=== PATIENT | male | born 1940 | race Caucasian/White ===

== ENCOUNTER 2018-06-10 11:51 | Emergency (ER) | payer MEDICARE, OTHER, SELFPAY ==
[2018-06-10 11:54] VITALS: BP 115/70; PULSE 61; RESP 18; TEMP 36.7; O2SAT 97
--- NOTE | 2018-06-10 12:50 | ED.ABDPAIN ---
HPI - Abdominal Pain General Chief Complaint: Abdominal Pain Stated Complaint: GALL BLADDER INFEC Time Seen by Provider: 06/10/18 12:48 Source: patient Mode of arrival: ambulatory Limitations: no limitations History of Present Illness HPI narrative: Patient is a 78-year-old male sent over from [place] for evaluation of possible gallbladder pathology. Patient states that earlier this year he was diagnosed with a ?gallbladder infection ?he states that he was treated with antibiotics. He states he was told that if he was younger he would have had his gallbladder removed but at the time they decided not to do it. He states that he has not had any symptoms since that episode. He states that over the past couple days has had right upper quadrant and right flank pain. Patient denies any fevers. Did have a ?poor ?diet yesterday. States that pain is not worse with deep breathing but did get worse when he was hitting bumps in the car on his way here. Related Data Home Medications Medication Instructions Recorded Confirmed amlodipine 5 mg PO DAILY 06/10/18 06/10/18 aspirin 81 mg PO DAILY 06/10/18 06/10/18 atorvastatin 40 mg PO DAILY 06/10/18 06/10/18 carvedilol 3 tab PO BID 06/10/18 06/10/18 furosemide 40 - 80 mg PO DAILY 06/10/18 06/10/18 warfarin 5 mg PO QPM 06/10/18 06/10/18 Allergies Allergy/AdvReac Type Severity Reaction Status Date / Time piperacillin [From Zosyn] Allergy Severe renal Verified 06/10/18 14:38 failure propofol Allergy Severe Unresponsiv Verified 06/10/18 14:38 e tazobactam [From Zosyn] Allergy Severe renal Verified 06/10/18 14:38 failure vancomycin Allergy Severe renal Verified 06/10/18 14:38 failure Review of Systems Constitutional Denies fatigue and Denies fever(s) ENT Ears, Nose, Mouth, and Throat: Denies vertigo and Denies dizziness Cardiovascular Denies chest pain and Denies dyspnea Respiratory Denies cough, Denies dyspnea and Denies wheezing Gastrointestinal Gastrointestinal: Reports abdominal pain, Denies constipation, Denies diarrhea, Denies nausea and Denies vomiting Genitourinary Denies dysuria and Reports flank pain (Right) Musculoskeletal Denies myalgias and Denies arthralgias Integumentary/Breasts Denies lesions and Denies rash Neurologic Denies confusion, Denies vertigo and Denies dizziness Psychiatric Denies confusion Endocrine Denies fatigue Hematologic/Lymphatic Denies easy bleeding and Denies easy bruising Allergic/Immunologic Denies wheezing [facility] Medical History Hypertension (Acute) Surgical History No pertinent past surgical history (Acute) Social History Smoking Status: Former smoker Exam Initial Vital Signs Initial Vital Signs: Vital Signs Temperature 98.1 F 06/10/18 11:54 Pulse Rate 61 06/10/18 11:54 Respiratory Rate 18 06/10/18 11:54 Blood Pressure 115/70 06/10/18 11:54 Pulse Oximetry 97 06/10/18 11:54 Const General: cooperative, healthy appearing, comfortable, well developed, well groomed and No acute distress Orientation: alert, awake and oriented x3 HENMT Head: normal to inspection and normocephalic Resp Effort & Inspection: normal respiratory effort Auscultation: clear to auscultation bilaterally Cardio Rate: regular rate Rhythm: regular rhythm Pulses: radial pulses present GI Inspection: non-distended Palpation: soft, No firm and No tender (No right upper quadrant tenderness negative Arredondo sign) General: CVA tenderness (Points to his right CVA where the pain was previously.) Skin Lesions: no lesions Rashes: no rashes Neuro General: alert, awake and oriented x3 Extrem General: normal to inspection and capillary refill normal Psych Appearance: grossly normal and well kempt Course Orders Ordered: ED Orders 06/10/18 12:49 US abdomen complete Stat 06/10/18 13:15 Complete Blood Count AUTO DIFF Stat Comprehensive Metabolic Panel Stat Lipase Stat Prothrombin Time INR Stat Vital Signs - 8 hr 06/10/18 11:54 06/10/18 13:08 06/10/18 14:57 Temperature 98.1 F Pulse Rate 61 61 68 Respiratory Rate 18 15 15 Blood Pressure 115/70 Blood Pressure [Left Arm] 114/70 Blood Pressure [Right Arm] 118/79 Pulse Oximetry 97 95 100 MDM - Abdominal Pain Lab Data Attestation: I reviewed the patient's lab results. Result diagrams: 06/10/18 13:15 06/10/18 13:15 Lab Results 06/10/18 06/10/18 06/10/18 Range/Units 13:15 13:15 13:15 WBC 6.7 (4.5-11.0) X10^3/uL RBC 3.92 L (4.5-5.9) X10^6/uL Hgb 12.9 L (13.5-17.5) g/dL Hct 37.4 L (41-53) % MCV 95.4 (80-100) fL MCH 33.0 (26-34) PG MCHC 34.6 (30-36) % RDW 13.5 (11.6-14.8) % Plt Count 200 (150-400) X10^3/uL Neut % (Auto) 58.8 (50-75) % Lymph % (Auto) 24.7 L (25-40) % [place] % (Auto) 11.2 (3-14) % Eos % (Auto) 4.5 H (2-4) % Baso % (Auto) 0.8 (0-2) % Neut # (Auto) 3900 (1713-7768) /uL PT 36.6 H (10.1-12.7) SECONDS INR 3.3 H (0.9-1.3) Sodium 141 (137-145) mmol/L Potassium 3.7 (3.4-5.1) mmol/L Chloride 106 (98-107) mmol/L Carbon Dioxide 25 (22-32) mmol/L BUN 16 (9-20) mg/dL Creatinine 0.90 (0.66-1.25) mg/dL Estimated GFR > 60.0 (>60) mL/min BUN/Creatinine Ratio 17.8 (6-22) Glucose 105 (80-110) mg/dL Calcium 9.0 (8.4-10.2) mg/dL Total Bilirubin 1.9 H (0.2-1.3) mg/dL AST 21 (17-59) IU/L ALT 24 (21-72) IU/L Alkaline Phosphatase 79 (38-126) U/L Total Protein 6.6 (6.3-8.2) g/dL Albumin 4.0 (3.5-5.0) g/dL Globulin 2.6 (1.7-4.1) g/dL Albumin/Globulin Ratio 1.5 (1.0-2.8) Lipase 40 (23-300) U/L Point of care testing: Urine Dip Bedside Urine Glucose Negative Bedside Urine Bilirubin - Negative Bedside Urine Ketone - Negative Urine Specific [place] 1.015 Bedside Urine Occult Blood - Negative Bedside Urine pH 6.0 Bedside Urine Protein - Negative Bedside Urine Nitrite - Negative Bedside Urine Leukocytes - Negative Esterase Imaging Data US - abdomen: Radiologist's impression: PROCEDURE: US ABDOMEN COMPLETE INDICATIONS: Right upper quadrant pain concern for GB pathology TECHNIQUE: Real-time scanning was performed of the abdominal and retroperitoneal organs, with image documentation. COMPARISON: None. FINDINGS: Liver: Liver is normal in size and homogeneous in echotexture. Gallbladder: Cholelithiasis is identified with the largest measuring up to approximately 9 mm. Sludge is seen within the gallbladder. There is no gallbladder wall thickening, pericholecystic fluid, or cholelithiasis. Biliary ducts: Intrahepatic bile ducts are non-dilated. Extrahepatic bile duct caliber measures 5 mm. Normal is 6-7 mm or less in diameter, or 10 mm or less post-cholecystectomy. Pancreas: Visualized portions of the pancreas are sonographically normal. Spleen: The spleen is mildly enlarged and measures 13.9 cm in length. Kidneys: Kidneys are normal in size. Cortical thinning is noted bilaterally with mild increased echogenicity of the kidneys. Right kidney measures 13.8 cm long; left kidney measures 13.3 cm long. No hydronephrosis or nephrolithiasis. No solid masses. Bilateral renal cysts are identified with the largest cyst noted to be on the left, measuring up to 4.4 cm in diameter. Aorta: Visualized aorta is normal in caliber at less than 3 cm. Iliacs: Proximal common iliac arteries are normal in caliber at less than 2.5 cm. IVC: Intrahepatic inferior vena cava is patent. Miscellaneous: No free abdominal fluid. IMPRESSION: 1. Cholelithiasis and gallbladder sludge without convincing sonographic evidence of acute cholecystitis. 2. Cortical thinning of the kidneys with mild increased echogenicity is suspicious for chronic medical renal disease. Please correlate clinically. There is no hydronephrosis. 3. Mild splenectomy. Dictated by: Wilver Solis M.D. on 06/10/2018 at 13:22 Approved by: Wilver Solis M.D. on 06/10/2018 at 13:25 MDM Narrative Medical decision making narrative: Patient does have right flank pain which is unusual for gallbladder pathology however he states that this is where his pain was when he was diagnosed with a ?gallbladder infection ?in the past. At the time of my exam he was asymptomatic. LFTs unremarkable. Right upper quadrant ultrasound does show gallbladder sludge however no other signs of cholecystitis. Urine was unremarkable. Skin was unremarkable. Low suspicion for zoster. Discussed all of this with the patient and his daughter who was at bedside. He was given return precautions. No indication for antibiotic currently. We did discuss changing his diet to avoid the pain. Will hold on surgical consultation for now. Both the patient and his daughter expressed understanding and agreement. Discharge Plan Departure Patient Disposition: Home, Self-Care Clinical Impression: Cholelithiasis Instructions: Gallstones (Alternative Therapy), DI for Gallstones Activity Restrictions/Additional Instructions: You do have sludge in your gallbladder which does require follow-up with her primary care doctor when you get home to discuss the indications for a surgical consult. Recommend that you avoid fatty or greasy foods to avoid any continued pain. Return to the emergency department for any worsening pain, rashes, vomiting, fevers, or any other concerning symptoms. Continue all of your medications as directed. Prescriptions: No Action furosemide 40 mg tablet 40 - 80 mg PO DAILY RF: 0 atorvastatin 40 mg tablet 40 mg PO DAILY RF: 0 carvedilol 12.5 mg tablet 3 tab PO BID RF: 0 amlodipine 5 mg tablet 5 mg PO DAILY RF: 0 warfarin 5 mg tablet 5 mg PO QPM RF: 0 aspirin 81 mg Tablet,Delayed Release (Dr/Ec) 81 mg PO DAILY RF: 0
[2018-06-10 13:08] VITALS: BP 114/70; PULSE 61; RESP 15; O2SAT 95
[2018-06-10 13:32] LABS: Add Manual Diff / Slide Review NO; Basophils Percent Auto 0.8 % (0-2); Eosinophils Percent Auto 4.5 % (2-4); Hematocrit 37.4 % (41-53); Hemoglobin 12.9 g/dL (13.5-17.5); Lymphocytes Percent Auto 24.7 % (25-40); Mean Corpuscular HGB Conc 34.6 % (30-36); Mean Corpuscular Volume 95.4 fL (80-100); Monocytes Percent Auto 11.2 % (3-14); Neutrophils Absolute Auto 3900 /uL (3000-5900); Neutrophils Percent Auto 58.8 % (50-75); Platelet Count 200 X10^3/uL (150-400); Red Blood Cell Count 3.92 X10^6/uL (4.5-5.9); Red Cell Distribution Width 13.5 % (11.6-14.8); White Blood Cell Count 6.7 X10^3/uL (4.5-11.0)
[2018-06-10 13:40] LABS: INR 3.3 (0.9-1.3); Prothrombin Time 36.6 SECONDS (10.1-12.7)
[2018-06-10 13:45] LABS: Alanine Aminotransferase 24 IU/L (21-72); Albumin Globulin Ratio 1.5 (1.0-2.8); Alkaline Phosphatase 79 U/L (38-126); Aspartate Aminotransferase 21 IU/L (17-59); BUN Creatinine Ratio 17.8 (6-22); Bilirubin Total 1.9 mg/dL (0.2-1.3); Blood Urea Nitrogen 16 mg/dL (9-20); Carbon Dioxide 25 mmol/L (22-32); Chloride 106 mmol/L (98-107); Estimated Glomerular Filt Rate > 60.0 mL/min (>60); Globulin 2.6 g/dL (1.7-4.1); Glucose 105 mg/dL (80-110); HEMOLYSIS < 15 (0-50); Lipase 40 U/L (23-300); Potassium 3.7 mmol/L (3.4-5.1); Sodium 141 mmol/L (137-145); Total Protein 6.6 g/dL (6.3-8.2)
[2018-06-10 14:57] VITALS: BP 118/79; PULSE 68; RESP 15; O2SAT 100
== END 2018-06-10 15:27 | disposition home or self-care (01) ==
PROVIDERS: Emergency Provider Emergency Medicine
DX: K80.20 Calculus of gallbladder without cholecystitis without obstruction (principal)
CPT/HCPCS: 36591; 76700; 80053; 81003; 83690; 85025; 85610; 99283; 99284